=== PATIENT | female | born 1995 | race Two or more races ===

== ENCOUNTER 2021-01-05 12:45 | Observation (INO) | payer MEDICAID ==
[2021-01-05] MEDS ORDERED: PREN-96 PO (14:07)
== END 2021-01-05 15:05 | disposition home or self-care (01) ==
LOC: LDRP 12:45
PROVIDERS: ADMIT Obstetrics & Gynecology; ATTEND Obstetrics & Gynecology
DX: O60.03 Preterm labor without delivery, third trimester (principal); Z3A.33 33 weeks gestation of pregnancy
CPT/HCPCS: 59025; 76817; 76818; 81002; G0378

== ENCOUNTER 2021-01-12 10:11 | Observation (INO) | payer MEDICAID ==
[~2021-01-12] VITALS: Ht 142.2 cm; Wt 54.4 kg
[~2021-01-12 10:11] MED LIST: PREN-96 PO
[2021-01-12] MEDS ORDERED: NIFEdipine 10 MG CAP PO SCH (12:00)
== END 2021-01-12 11:45 | disposition home or self-care (01) ==
LOC: LDRP 10:11
PROVIDERS: ADMIT Obstetrics & Gynecology; ATTEND Obstetrics & Gynecology
DX: O60.03 Preterm labor without delivery, third trimester (principal); O62.9 Abnormality of forces of labor, unspecified; O26.893 Other specified pregnancy related conditions, third trimester; R51.9 Headache, unspecified; Z3A.34 34 weeks gestation of pregnancy
CPT/HCPCS: 59025; 76818; 81002; G0378

== ENCOUNTER 2021-01-19 08:37 | Observation (INO) | payer MEDICAID | END 2021-01-19 11:50 | disposition home or self-care (01) | LOC: LDRP 11:00 | PROVIDERS: ADMIT Specialist; ATTEND Specialist | DX: O60.03 Preterm labor without delivery, third trimester (principal); Z3A.35 35 weeks gestation of pregnancy | CPT/HCPCS: 59025; 81002; G0378 ==

== ENCOUNTER 2021-02-03 15:35 | Observation (INO) | payer MEDICAID | END 2021-02-03 17:54 | disposition home or self-care (01) | LOC: LDRP 15:35 | PROVIDERS: ADMIT Specialist; ATTEND Specialist | DX: O36.5930 Maternal care for other known or suspected poor fetal growth, third trimester, not applicable or unspecified (principal); Z3A.37 37 weeks gestation of pregnancy | CPT/HCPCS: 59025; 76818; 81002; G0378 ==

== ENCOUNTER 2021-02-07 13:56 | Observation (INO) | payer MEDICAID ==
[~2021-02-07] VITALS: Ht 139.7 cm; Wt 55.3 kg
== END 2021-02-07 15:00 | disposition home or self-care (01) ==
LOC: LDRP 13:56
PROVIDERS: ADMIT Obstetrics & Gynecology; ATTEND Obstetrics & Gynecology
DX: O36.5930 Maternal care for other known or suspected poor fetal growth, third trimester, not applicable or unspecified (principal); O62.9 Abnormality of forces of labor, unspecified; Z3A.38 38 weeks gestation of pregnancy
CPT/HCPCS: 59025; 76818; 81002; G0378

== ENCOUNTER 2021-02-10 07:00 | Inpatient (IN) | payer MEDICAID ==
[~2021-02-10] VITALS: Ht 142.2 cm; Wt 56.7 kg
[2021-02-10] MEDS ORDERED: WITCH HAZEL-GLYCERIN PAD TOP PRN (08:15)
[2021-02-10] MEDS ORDERED: PHISODERM TOP SOLN 240ML BTL TOP PRN (08:15)
[2021-02-10] MEDS ORDERED: DERMOPLAST 60ML BOTTLE TOP PRN (08:15)
[2021-02-10] MEDS ORDERED: LIDOCAINE 2%HCL (LOCAL ANESTH.) INJ 20ML MDV IJ PRN (08:15)
[2021-02-10] MEDS ORDERED: PROMETHAZINE HCL 25 MG/ML 1ML IV PRN (08:15)
[2021-02-10] MEDS ORDERED: BUTORPHANOL TARTRATE 2 MG/1 ML VIAL IV PRN (08:15)
[2021-02-10 08:33] LABS: Basophils # (auto) 0 10 ^3/uL (0-0.2); Basophils % (auto) 0.1 % (0.0-2.0); Eosinophils # (auto) 0.1 10 ^3/uL (0-0.8); Eosinophils % (auto) 1.1 % (0.0-7.0); Hematocrit 30.8 % (36.0-46.0); Hemoglobin 10.5 g/dL (12.2-16.2); Lymphocytes # (auto) 1.9 10 ^3/uL (0.4-5.4); Lymphocytes % (auto) 22.9 % (10.0-50.0); Mean Corpuscular Hemoglobin 28.9 pg (28.0-32.0); Mean Corpuscular Volume 84.9 fL (80.0-100.0); Monocytes # (auto) 0.8 10 ^3/uL (0-1.3); Neutrophils # (auto) 5.7 10 ^3/uL (1.6-8.6); Neutrophils % (auto) 66.9 % (37.0-80.0); Red Blood Cells 3.62 10^6/uL (4.0-5.20); Red Cell Distribution Width 14.5 % (11.8-14.3); White Blood Cell 8.5 10^3/uL (4.4-10.8)
[2021-02-10 08:49] LABS: INR 0.99 (0.9-1.15); Partial Thromboplastin Time 25.1 sec (23.6-33.0)
[2021-02-10 09:03] LABS: Albumin 2.7 g/dL (3.4-5.0); Calcium 8.4 mg/dL (8.5-10.1); Potassium 3.3 mmol/L (3.5-5.1)
[2021-02-10 09:09] LABS: BUN/Creatinine Ratio 16.7; Bilirubin, Total 0.2 mg/dL (0.2-1.0); Total Protein 6.7 g/dL (6.4-8.2); Uric Acid 2.4 mg/dL (2.6-6.0)
[2021-02-10 09:22] LABS: Urine Bacteria NONE SEEN /hpf (None Seen); Urine Blood Negative /uL (Negative); Urine Mucus FEW (None Seen); Urine Specific Gravity 1.025 (1.001-1.035); Urine WBC 5 /hpf (0 - 5)
[2021-02-10 09:38] LABS: Alcohol, Urine < 3.0 mg/dL (0-10); Amphetamine Screen, Urine NEGATIVE (NEGATIVE); Barbiturate Scree,Urine NEGATIVE (NEGATIVE); Benzodiazephine Screen, Urine NEGATIVE (NEGATIVE); Cannabinoid Screen, Urine NEGATIVE (NEGATIVE); Cocaine Screen, Urine NEGATIVE (NEGATIVE); Opiate Scree,Urine NEGATIVE (NEGATIVE); Phencyclidine Screen, Urine NEGATIVE (NEGATIVE)
[2021-02-10] MEDS ORDERED: POTASSIUM CHL 20 Meq TABLET PO ONE (11:45)
[2021-02-10] MEDS: LACTATED RINGER'S 1,000 ML IV SCH ×2 (11:51→16:45)
[2021-02-10] MEDS: miSOPROStol 50 MCG per PRE-CUT 1/2 TAB PO PRN ×3 (11:52→20:44)
[2021-02-11] MEDS ORDERED: PROMETHAZINE HCL 25 MG/ML 1ML IM ONE (01:00)
[2021-02-11] MEDS: BUTORPHANOL TARTRATE 2 MG/1 ML VIAL IV PRN ×2 (01:12→04:24)
[2021-02-11] MEDS ORDERED: LACT. RINGERS/OXYTOCIN 20UNITS 1,000 ML IV SCH (01:15)
[2021-02-11] MEDS ORDERED: LACT. RINGERS/OXYTOCIN 20UNITS 500 ML IV ONE ×2 (01:15→01:45)
[2021-02-11] MEDS: LACTATED RINGER'S 1,000 ML IV SCH ×3 (04:32→15:34)
[2021-02-11] MEDS ORDERED: ePHEDrine SULFATE 50 MG/ML AMP IV ONE (06:00)
[2021-02-11] MEDS ORDERED: fentaNYL CITRATE 100 MCG/2 ML VL IV ONE (06:00)
[2021-02-11] MEDS ORDERED: LIDOCAINE HCL 2 %PF INJ 10ML AMP IJ ONE (06:00)
[2021-02-11] MEDS ORDERED: LACTATED RINGER'S 1,000 ML IV ONE (06:00)
[2021-02-11] MEDS ORDERED: NALOXONE HCL 0.4 MG/ML VIAL IV ONE (06:00)
[2021-02-11] MEDS ORDERED: ROPIVACAINE HCL 200 ML EPI SCH (06:00)
[2021-02-11 07:06] LABS: RPR Non Reactive (Non Reactive)
[2021-02-11] MEDS ORDERED: METHYLERGONOVINE MALEATE 0.2 MG/ML AMP IM ONE ×2 (13:53→16:45)
[2021-02-11] MEDS ORDERED: miSOPROStol 100 mcg TAB ONE (13:54)
[2021-02-11] MEDS ORDERED: ceFAZolin 1GM/50ML 50 ML IV ONE (15:21)
[2021-02-11] MEDS: IBUPROFEN 600 MG TAB PO PRN ×2 (17:37→21:33)
[2021-02-11 19:10] VITALS: BP 118/68
[2021-02-11] MEDS ORDERED: ceFAZolin 1GM/50ML 50 ML IV SCH ×2 (22:00→23:30)
[2021-02-11 23:35] VITALS: BP 101/63
[2021-02-11] MEDS: ceFAZolin 1GM/50ML 50 ML IV SCH (23:43)
[2021-02-12 03:36] VITALS: BP 114/54
[2021-02-12 07:00] VITALS: BP 114/74
[2021-02-12] MEDS: ACETAMINOPHEN 325 MG TAB PO PRN ×2 (07:20→18:20)
[2021-02-12] MEDS: ceFAZolin 1GM/50ML 50 ML IV SCH ×2 (10:14→18:21)
[2021-02-12] MEDS: IBUPROFEN 600 MG TAB PO PRN (10:14)
[2021-02-12] MEDS: DOCUSATE CALCIUM 240 MG CAP PO SCH (10:16)
[2021-02-12 11:00] VITALS: BP 109/59
[2021-02-12 15:00] VITALS: BP 94/57
[2021-02-12 19:00] VITALS: BP 80/51
[2021-02-12 22:55] VITALS: BP 98/58
[2021-02-13] MEDS: ceFAZolin 1GM/50ML 50 ML IV SCH ×2 (02:30→10:30)
[2021-02-13] MEDS: IBUPROFEN 600 MG TAB PO PRN ×2 (02:30→03:11)
[2021-02-13 02:31] VITALS: BP 103/63
[2021-02-13] MEDS: ACETAMINOPHEN 325 MG TAB PO PRN (03:28)
[2021-02-13 07:00] VITALS: BP 117/77
[2021-02-13] MEDS: DOCUSATE CALCIUM 240 MG CAP PO SCH (10:00)
[2021-02-13 11:28] VITALS: BP 110/72
== END 2021-02-13 11:45 | disposition home or self-care (01) | DRG 560 ==
LOC: LDRP 07:00 → EDSTATUS 07:26 → LDRP 11:02
PROVIDERS: ADMIT Obstetrics & Gynecology; ATTEND Obstetrics & Gynecology
PROC: 3E0P7VZ Introduction of Hormone into Female Reproductive, Via Natural or Artificial Opening (ICD-10-PCS; 2021-02-10)
PROC: 10E0XZZ Delivery of Products of Conception, External Approach (ICD-10-PCS; principal; 2021-02-11)
PROC: 0W8NXZZ Division of Female Perineum, External Approach (ICD-10-PCS; 2021-02-11)
PROC: 0KQM0ZZ Repair Perineum Muscle, Open Approach (ICD-10-PCS; 2021-02-11)
PROC: 3E0R3BZ Introduction of Anesthetic Agent into Spinal Canal, Percutaneous Approach (ICD-10-PCS; 2021-02-11)
PROC: 00HU33Z Insertion of Infusion Device into Spinal Canal, Percutaneous Approach (ICD-10-PCS; 2021-02-11)
PROC: 10907ZC Drainage of Amniotic Fluid, Therapeutic from Products of Conception, Via Natural or Artificial Opening (ICD-10-PCS; 2021-02-11)
DX: O36.5930 Maternal care for other known or suspected poor fetal growth, third trimester, not applicable or unspecified (principal); O70.1 Second degree perineal laceration during delivery; Z37.0 Single live birth; Z3A.39 39 weeks gestation of pregnancy; Z20.822 Contact with and (suspected) exposure to COVID-19
CPT/HCPCS: 36415; 59025; 59409; 62282; 80053; 80307; 81001; 81002; 84550; 85025; 85610; 85730; 86592; 86850; 86900; 86901; 87426; 94760; 96360; 96361; G0378; J0690; J2590

== ENCOUNTER 2024-02-01 19:16 | Inpatient (IN) | payer MEDICAID ==
[~2024-02-01] VITALS: Ht 142.2 cm; Wt 53.3 kg
[2024-02-01 20:06] LABS: Urine Bacteria None Seen /hpf (None Seen)
[2024-02-01 20:07] LABS: Basophils # (auto) 0 10 ^3/uL (0-0.2); Basophils % (auto) 0.3 % (0.0-2.0); Eosinophils # (auto) 0.1 10 ^3/uL (0-0.8); Eosinophils % (auto) 1.2 % (0.0-7.0); Hematocrit 32.1 % (36.0-46.0); Hemoglobin 10.9 g/dL (12.2-16.2); Lymphocytes # (auto) 1.3 10 ^3/uL (0.4-5.4); Lymphocytes % (auto) 13.7 % (10.0-50.0); Mean Corpuscular Hemoglobin 28.5 pg (28.0-32.0); Mean Corpuscular Hgb Conc. 33.8 g/dL (32.0-36.0); Mean Corpuscular Volume 84.1 fL (80.0-100.0); Monocytes # (auto) 0.8 10 ^3/uL (0-1.3); Monocytes % (auto) 8.5 % (0.0-12.0); Neutrophils # (auto) 7.2 10 ^3/uL (1.6-8.6); Neutrophils % (auto) 76.3 % (37.0-80.0); Red Blood Cells 3.82 10^6/uL (4.0-5.20); Red Cell Distribution Width 13.1 % (11.8-14.3); White Blood Cell 9.5 10^3/uL (4.4-10.8)
[2024-02-01 20:20] LABS: Urine Blood Negative /uL (Negative); Urine Clarity Clear (Clear); Urine Color Yellow (Yellow); Urine Mucus FEW (None Seen); Urine Protein, UAD TRACE (Negative); Urine Specific Gravity 1.028 (1.001-1.035); Urine Urobilinogen Normal (Negative); Urine WBC 9 /hpf (0 - 5); Urine pH 5.5 (5.0-9.0)
[2024-02-01 20:26] LABS: Alanine Aminotransferase 24 U/L (7-40); Alkaline Phosphatase 64 U/L (46-116); Anion Gap 7 (5-15); Aspartate Aminotransferase 11 U/L (13-40); Bilirubin, Total 0.2 mg/dL (0.2-1.0); Calcium 8.8 mg/dL (8.7-10.4); Carbon Dioxide 27 mmol/L (20-30); Chloride 104 mmol/L (98-107); Glucose 110 mg/dL (74-106); Magnesium 1.7 mg/dL (1.6-2.6); Sodium 138 mmol/L (136-145); Total Protein 7.2 g/dL (5.7-8.2)
[2024-02-01 20:27] LABS: BUN/Creatinine Ratio 9.1 (10.0-20.0); Blood Urea Nitrogen < 5 mg/dL (9-23)
[2024-02-01] MEDS ORDERED: ACETAMINOPHEN 325 MG TAB PO PRN ×2 (21:45)
[2024-02-01 22:15] VITALS: PULSE 86; RESP 18; O2SAT 100
[2024-02-01] MEDS: SODIUM CHLORIDE 0.9% 1,000 ML IV ONE (22:36)
[2024-02-01] MEDS: LIDOCAINE VISCOUS 2% 15ML UD MT ONE (22:37)
[2024-02-01] MEDS: MAALOX PLUS or MAALOX 30 ML PO ONE (22:37)
[2024-02-01] MEDS: PANTOPRAZOLE 40 MG TAB PO ONE (22:38)
[2024-02-01] MEDS: ONDANSETRON HCL 4 MG/2 ML VIAL IV ONE (22:38)
[2024-02-01] MEDS: cefTRIAXone 1GM/50ML D5W 50 ML IV ONE (22:59)
[2024-02-01] MEDS: MORPHINE SULFATE INJ 2 MG/ml SYRG IV PRN (22:59)
[2024-02-01] MEDS: metroNIDAZOLE 500MG/100ML 100 ML IV SCH (23:08)
[2024-02-02] VITALS (8 sets, daily range): BP systolic 96–101; BP diastolic 63–71; PULSE 72–89; RESP 16–20; TEMP 98.2–98.8; O2SAT 94–97
[2024-02-02] MEDS: METOCLOPRAMIDE HCL 5MG/ml INJ 2ml VIAL IV ONE (00:32)
[2024-02-02] MEDS: SOD CHL 0.9%/ KCL 40MEQ 1,000 ML IV ONE (01:05)
[2024-02-02] MEDS: PANTOPRAZOLE 40 MG TAB PO SCH (05:31)
[2024-02-02] MEDS: HYDROcodone-ACET 5/325MG TAB PO PRN (05:39)
[2024-02-02 07:05] LABS: Chloride 109 mmol/L (98-107); Potassium 2.9 mmol/L (3.5-5.1); Sodium 140 mmol/L (136-145)
[2024-02-02 07:11] LABS: Glucose 96 mg/dL (74-106)
[2024-02-02 07:13] LABS: Basophils # (auto) 0 10 ^3/uL (0-0.2); Basophils % (auto) 0.2 % (0.0-2.0); Eosinophils # (auto) 0.1 10 ^3/uL (0-0.8); Eosinophils % (auto) 1.6 % (0.0-7.0); Hematocrit 27.6 % (36.0-46.0); Hemoglobin 9.6 g/dL (12.2-16.2); Lymphocytes # (auto) 1.7 10 ^3/uL (0.4-5.4); Lymphocytes % (auto) 18.6 % (10.0-50.0); Mean Corpuscular Hemoglobin 29.1 pg (28.0-32.0); Mean Corpuscular Hgb Conc. 34.7 g/dL (32.0-36.0); Mean Corpuscular Volume 83.8 fL (80.0-100.0); Monocytes # (auto) 0.9 10 ^3/uL (0-1.3); Monocytes % (auto) 10.3 % (0.0-12.0); Neutrophils # (auto) 6.2 10 ^3/uL (1.6-8.6); Neutrophils % (auto) 69.3 % (37.0-80.0); Red Blood Cells 3.29 10^6/uL (4.0-5.20); White Blood Cell 8.9 10^3/uL (4.4-10.8)
[2024-02-02 07:17] LABS: BUN/Creatinine Ratio 12.2 (10.0-20.0); Blood Urea Nitrogen < 5 mg/dL (9-23)
[2024-02-02 07:23] LABS: Anion Gap 8 (5-15); Carbon Dioxide 23 mmol/L (20-30)
[2024-02-02] MEDS: cefTRIAXone 1GM/50ML D5W 50 ML IV SCH (08:25)
[2024-02-02] MEDS: POTASSIUM CHL 20 Meq TABLET PO ONE ×2 (11:54→12:07)
[2024-02-02] MEDS: MAGNESIUM OXIDE 400 MG TAB PO ONE (11:54)
[2024-02-02] MEDS: DICYCLOMINE HCL 10 MG CAP PO PRN (16:17)
[2024-02-02] MEDS ORDERED: DICYCLOMINE HCL 10 MG CAP PO ONE (22:00)
[2024-02-03 01:00] VITALS: BP 120/54; PULSE 93; RESP 20; TEMP 98.9; O2SAT 99
[2024-02-03] MEDS: ONDANSETRON HCL 4 MG/2 ML VIAL IV PRN (01:45)
[2024-02-03 05:00] VITALS: BP 95/61; PULSE 85; RESP 20; TEMP 98.8; O2SAT 94
[2024-02-03 08:22] VITALS: BP 128/76; PULSE 82; RESP 20; TEMP 98.7; O2SAT 97
[2024-02-03 12:27] VITALS: BP 98/51; PULSE 80; RESP 18; TEMP 98.7; O2SAT 98
[2024-02-03 17:00] VITALS: BP 111/72; PULSE 63; RESP 16; TEMP 98.4; O2SAT 98
[2024-02-03 21:00] VITALS: BP 103/68; PULSE 80; RESP 18; TEMP 99; O2SAT 97
[2024-02-04] VITALS (9 sets, daily range): BP systolic 101–109; BP diastolic 60–77; PULSE 77–92; RESP 16–22; TEMP 98–99.1; O2SAT 92–97
[2024-02-04] MEDS: METOCLOPRAMIDE HCL 5MG/ml INJ 2ml VIAL IV ONE (03:51)
[2024-02-04 07:14] LABS: Basophils # (auto) 0 10 ^3/uL (0-0.2); Basophils % (auto) 0.4 % (0.0-2.0); Eosinophils # (auto) 0.2 10 ^3/uL (0-0.8); Eosinophils % (auto) 1.5 % (0.0-7.0); Hematocrit 30.7 % (36.0-46.0); Hemoglobin 10.4 g/dL (12.2-16.2); Lymphocytes # (auto) 1.4 10 ^3/uL (0.4-5.4); Lymphocytes % (auto) 13.7 % (10.0-50.0); Mean Corpuscular Hemoglobin 28.4 pg (28.0-32.0); Mean Corpuscular Hgb Conc. 33.8 g/dL (32.0-36.0); Monocytes # (auto) 0.8 10 ^3/uL (0-1.3); Monocytes % (auto) 8.3 % (0.0-12.0); Neutrophils # (auto) 7.6 10 ^3/uL (1.6-8.6); Neutrophils % (auto) 76.1 % (37.0-80.0); Nucleated Red Blood Cells % 0.1 %; Red Blood Cells 3.66 10^6/uL (4.0-5.20); Red Cell Distribution Width 13.2 % (11.8-14.3)
[2024-02-04 07:27] LABS: Anion Gap 13 (5-15); Carbon Dioxide 19 mmol/L (20-30); Chloride 109 mmol/L (98-107); Potassium 3.3 mmol/L (3.5-5.1); Sodium 141 mmol/L (136-145)
[2024-02-04 07:29] LABS: Calcium 8.6 mg/dL (8.7-10.4)
[2024-02-04 07:32] LABS: Glucose 73 mg/dL (74-106)
[2024-02-04 07:34] LABS: BUN/Creatinine Ratio 11.4 (10.0-20.0); Blood Urea Nitrogen < 5 mg/dL (9-23); INR 1.19 (0.9-1.15); Partial Thromboplastin Time 28.2 SEC (24.5-34.5); Prothrombin Time 12.5 sec (9.3-11.8)
[2024-02-04] MEDS ORDERED: fentaNYL CITRATE 100 MCG/2 ML VL ONE (09:55)
[2024-02-04] MEDS ORDERED: PROPOFOL 10 MG/ML 20 ML IV ONE (09:56)
[2024-02-04] MEDS ORDERED: HYDROmorphone HCL 2 MG/ML VL/or syr IV PRN (10:30)
[2024-02-04] MEDS ORDERED: MEPERIDINE HCL (25 MG/ML) 1ML VIAL IV PRN (10:30)
[2024-02-04] MEDS: ONDANSETRON HCL 4 MG/2 ML VIAL IV ONE (11:42)
[2024-02-04] MEDS: MESALAMINE 400mg Delayed Release Cap PO SCH (12:51)
[2024-02-04] MEDS: methylPREDNISolone SOD SUCC 40 MG/ML VL IV SCH (12:51)
[2024-02-04] MEDS: METOCLOPRAMIDE HCL 10 MG TAB PO SCH (12:51)
[2024-02-04] MEDS: POTASSIUM CHLORIDE 40 MEQ in SOD CHL 0.45% 1,000 ML IV SCH (15:57)
[2024-02-04] MEDS: METOCLOPRAMIDE HCL 5MG/ml INJ 2ml VIAL IV PRN (21:22)
[2024-02-04] MEDS: LOPERAMIDE 1 mg/7.5ml ORAL soln PO PRN (21:23)
[2024-02-05] VITALS (7 sets, daily range): BP systolic 93–104; BP diastolic 57–73; PULSE 71–107; RESP 16–19; TEMP 97.5–98.3; O2SAT 94–98
[2024-02-05] MEDS: CHOLESTYRAMINE 4 GM POWDER GT SCH (11:23)
[2024-02-05] MEDS ORDERED: MESA400C PO (13:07)
[2024-02-05] MEDS ORDERED: PRED20TA2 PO (13:07)
[2024-02-05] MEDS: methylPREDNISolone SOD SUCC 40 MG/ML VL IV SCH (21:22)
[2024-02-06 01:00] VITALS: BP 105/72; PULSE 99; RESP 17; TEMP 98.3; O2SAT 98
[2024-02-06 05:00] VITALS: BP 98/64; PULSE 55; RESP 17; TEMP 98; O2SAT 100
[2024-02-06 05:32] LABS: Hematocrit 37.6 % (36.0-46.0); Hemoglobin 12.7 g/dL (12.2-16.2)
[2024-02-06 05:44] LABS: Chloride 106 mmol/L (98-107); Potassium 4.2 mmol/L (3.5-5.1); Sodium 141 mmol/L (136-145)
[2024-02-06 05:45] LABS: Anion Gap 9 (5-15); Carbon Dioxide 26 mmol/L (20-30)
[2024-02-06 05:46] LABS: Calcium 9.4 mg/dL (8.7-10.4)
[2024-02-06 05:50] LABS: BUN/Creatinine Ratio 15.5 (10.0-20.0); Blood Urea Nitrogen 9 mg/dL (9-23); Glucose 178 mg/dL (74-106)
== END 2024-02-06 11:00 | disposition home or self-care (01) | DRG 245 ==
LOC: ER 19:16 → OVERFLOW 21:37 → TELE-EAST 02-02 02:41 → EAST 02-02 10:08
PROVIDERS: ADMIT Internal Medicine; ATTEND Nurse Practitioner Acute Care
PROC: 0DBL8ZX Excision of Transverse Colon, Via Natural or Artificial Opening Endoscopic, Diagnostic (ICD-10-PCS; 2024-02-04)
PROC: 0DBN8ZX Excision of Sigmoid Colon, Via Natural or Artificial Opening Endoscopic, Diagnostic (ICD-10-PCS; 2024-02-04)
PROC: 0DBM8ZX Excision of Descending Colon, Via Natural or Artificial Opening Endoscopic, Diagnostic (ICD-10-PCS; 2024-02-04)
PROC: 0DBK8ZX Excision of Ascending Colon, Via Natural or Artificial Opening Endoscopic, Diagnostic (ICD-10-PCS; principal; 2024-02-04 09:59)
DX: K51.00 Ulcerative (chronic) pancolitis without complications (principal); A04.5 Campylobacter enteritis; E87.8 Other disorders of electrolyte and fluid balance, not elsewhere classified; E87.6 Hypokalemia; F17.210 Nicotine dependence, cigarettes, uncomplicated; K64.8 Other hemorrhoids; Z80.3 Family history of malignant neoplasm of breast; Z79.899 Other long term (current) drug therapy
CPT/HCPCS: 36415; 74176; 80048; 80053; 81001; 82270; 83735; 84702; 85014; 85018; 85025; 85048; 85610; 85730; 86141; 86256; 86671; 86850; 86900; 86901; 87045; 87086; 87088; 87427; 96361; 96365; 96375; G0378; J2405; J2704; J3490

== ENCOUNTER → 2024-03-05 | Outpatient (CLI) | payer MEDICAID ==
[~2024-03-05] MED LIST changes: +MESA400C PO; +PRED20TA2 PO; -PREN-96 PO
[2024-03-05 12:21] LABS: Urine Bacteria None Seen /hpf (None Seen)
[2024-03-05 12:56] LABS: Basophils # (auto) 0 10 ^3/uL (0-0.2); Basophils % (auto) 0.5 % (0.0-2.0); Eosinophils # (auto) 0.1 10 ^3/uL (0-0.8); Eosinophils % (auto) 1.4 % (0.0-7.0); Hematocrit 34.8 % (36.0-46.0); Hemoglobin 11.5 g/dL (12.2-16.2); Mean Corpuscular Hemoglobin 27.6 pg (28.0-32.0); Mean Corpuscular Hgb Conc. 33.1 g/dL (32.0-36.0); Mean Corpuscular Volume 83.4 fL (80.0-100.0); Monocytes # (auto) 0.7 10 ^3/uL (0-1.3); Monocytes % (auto) 6.6 % (0.0-12.0); Neutrophils # (auto) 6.1 10 ^3/uL (1.6-8.6); Neutrophils % (auto) 61.5 % (37.0-80.0); Platelet Count (auto) 317 10^3/uL (140-450); Red Blood Cells 4.17 10^6/uL (4.0-5.20); Red Cell Distribution Width 13.6 % (11.8-14.3); White Blood Cell 9.9 10^3/uL (4.4-10.8)
[2024-03-05 13:09] LABS: Urine Blood Negative /uL (Negative); Urine Budding Yeast OCCASIONAL /hpf (None Seen); Urine Clarity Turbid (Clear); Urine Color Yellow (Yellow); Urine Hyaline Cast FEW /lpf (0 - 2); Urine Mucus FEW (None Seen); Urine Protein, UAD TRACE (Negative); Urine Specific Gravity 1.033 (1.001-1.035); Urine Urobilinogen Normal (Negative); Urine WBC 17 /hpf (0 - 5); Urine pH 5.5 (5.0-9.0)
[2024-03-05 13:33] LABS: Alanine Aminotransferase 50 U/L (7-40); Albumin 4.5 g/dL (3.2-4.8); Alkaline Phosphatase 54 U/L (46-116); Anion Gap 5 (5-15); Aspartate Aminotransferase < 8 U/L (13-40); BUN/Creatinine Ratio 23.2 (10.0-20.0); Bilirubin, Total 0.3 mg/dL (0.2-1.0); Blood Urea Nitrogen 13 mg/dL (9-23); Calcium 9.6 mg/dL (8.7-10.4); Carbon Dioxide 27 mmol/L (20-30); Chloride 107 mmol/L (98-107); Cholesterol 119 mg/dL (< 200); Glucose 81 mg/dL (74-106); HDL Cholesterol 43 mg/dL (40-59); LDL Cholesterol 63 mg/dL (< 100); Potassium 3.5 mmol/L (3.5-5.1); Sodium 139 mmol/L (136-145); Total Protein 7.7 g/dL (5.7-8.2); Triglycerides 70 mg/dL (< 150)
[2024-03-06 08:47] LABS: Hepatitis B Surface Antigen Negative (Negative)
[2024-03-06 09:08] LABS: Hepatitis C Antibody Negative (Negative)
[2024-03-07 12:07] LABS: Saccharomyces cerevisiae IgA <20.0 Units (0.0-24.9)
== END | disposition home or self-care (01) ==
LOC: LAB 11:42
PROVIDERS: ATTEND Internal Medicine
DX: Z00.01 Encounter for general adult medical examination with abnormal findings (principal); M79.89 Other specified soft tissue disorders; E87.6 Hypokalemia; D50.0 Iron deficiency anemia secondary to blood loss (chronic); K51.90 Ulcerative colitis, unspecified, without complications; R19.7 Diarrhea, unspecified; Z82.49 Family history of ischemic heart disease and other diseases of the circulatory system; Z83.3 Family history of diabetes mellitus
CPT/HCPCS: 36415; 80053; 80061; 81001; 82306; 83036; 83880; 84439; 84443; 85025; 86256; 86671; 86803; 87340

== ENCOUNTER → 2024-05-22 | Outpatient (CLI) | payer MEDICAID ==
[2024-05-22 12:01] LABS: Basophils # (auto) 0 10 ^3/uL (0-0.2); Basophils % (auto) 0.6 % (0.0-2.0); Hemoglobin 12.2 g/dL (12.2-16.2); Monocytes # (auto) 0.4 10 ^3/uL (0-1.3); Nucleated Red Blood Cells % 0.1 %
[2024-05-22 12:03] LABS: Eosinophils # (auto) 0.1 10 ^3/uL (0-0.8); Eosinophils % (auto) 2.3 % (0.0-7.0); Hematocrit 37.2 % (36.0-46.0); Lymphocytes # (auto) 1.7 10 ^3/uL (0.4-5.4); Lymphocytes % (auto) 29.3 % (10.0-50.0); Mean Corpuscular Hgb Conc. 32.8 g/dL (32.0-36.0); Monocytes % (auto) 7.6 % (0.0-12.0); Neutrophils # (auto) 3.6 10 ^3/uL (1.6-8.6); Neutrophils % (auto) 60.2 % (37.0-80.0); Platelet Count (auto) 273 10^3/uL (140-450); Red Blood Cells 4.71 10^6/uL (4.0-5.20); Red Cell Distribution Width 15.3 % (11.8-14.3)
[2024-05-22 12:50] LABS: Alanine Aminotransferase 18 U/L (7-40); Albumin 4.6 g/dL (3.2-4.8); Alkaline Phosphatase 47 U/L (46-116); Anion Gap 8 (5-15); Aspartate Aminotransferase < 8 U/L (13-40); Bilirubin, Total 0.4 mg/dL (0.2-1.0); Blood Urea Nitrogen 8 mg/dL (9-23); Calcium 9.8 mg/dL (8.7-10.4); Carbon Dioxide 27 mmol/L (20-31); Chloride 107 mmol/L (98-107); Glucose 86 mg/dL (74-106); Potassium 3.8 mmol/L (3.5-5.1); Sodium 142 mmol/L (136-145); Total Protein 7.7 g/dL (5.7-8.2)
[2024-05-22 12:52] LABS: Ferritin 5.5 ng/mL (10-291); Free T4 (Free Thyroxine) 1.02 ng/dL (0.89-1.76)
[2024-05-22 12:53] LABS: Free T3 3.94 pg/mL (2.3-4.2)
== END | disposition home or self-care (01) ==
LOC: LAB 11:32
PROVIDERS: ATTEND Internal Medicine
DX: R01.2 Other cardiac sounds (principal); R60.9 Edema, unspecified; D50.0 Iron deficiency anemia secondary to blood loss (chronic); E87.6 Hypokalemia
CPT/HCPCS: 36415; 80053; 82728; 84439; 84443; 84481; 85025; 86038

== ENCOUNTER → 2024-08-05 | Outpatient (CLI) | payer MEDICAID ==
[2024-08-05 11:22] LABS: Basophils # (auto) 0 10 ^3/uL (0-0.2); Eosinophils # (auto) 0.2 10 ^3/uL (0-0.8); Hemoglobin 12.7 g/dL (12.2-16.2); Lymphocytes # (auto) 1.8 10 ^3/uL (0.4-5.4); Mean Corpuscular Hemoglobin 26.8 pg (28.0-32.0); Monocytes # (auto) 0.4 10 ^3/uL (0-1.3); Nucleated Red Blood Cells % 0.1 %; Red Cell Distribution Width 14.9 % (11.8-14.3)
[2024-08-05 11:23] LABS: Basophils % (auto) 0.6 % (0.0-2.0); Eosinophils % (auto) 2.8 % (0.0-7.0); Hematocrit 38.3 % (36.0-46.0); Lymphocytes % (auto) 28.4 % (10.0-50.0); Mean Corpuscular Volume 81.4 fL (80.0-100.0); Monocytes % (auto) 6.1 % (0.0-12.0); Neutrophils % (auto) 62.1 % (37.0-80.0); Platelet Count (auto) 258 10^3/uL (140-450); Red Blood Cells 4.71 10^6/uL (4.0-5.20); White Blood Cell 6.5 10^3/uL (4.4-10.8)
[2024-08-05 12:00] LABS: Chloride 106 mmol/L (98-107); Potassium 3.9 mmol/L (3.5-5.1); Sodium 140 mmol/L (136-145)
[2024-08-05 12:01] LABS: Anion Gap 7 (5-15); Calcium 10.3 mg/dL (8.7-10.4); Carbon Dioxide 27 mmol/L (20-31)
[2024-08-05 12:06] LABS: Glucose 89 mg/dL (74-106); Lipase 42 U/L (12-53)
[2024-08-05 12:20] LABS: Blood Urea Nitrogen 8 mg/dL (9-23)
== END | disposition home or self-care (01) ==
LOC: LAB 11:04
PROVIDERS: ATTEND Internal Medicine Gastroenterology
DX: K50.90 Crohn's disease, unspecified, without complications (principal)
CPT/HCPCS: 36415; 80048; 83690; 85025

== ENCOUNTER → 2024-09-04 | Outpatient (CLI) | payer MEDICAID ==
[2024-09-04 12:44] LABS: Basophils # (auto) 0 10 ^3/uL (0-0.2); Basophils % (auto) 0.7 % (0.0-2.0); Eosinophils # (auto) 0.2 10 ^3/uL (0-0.8); Eosinophils % (auto) 3.8 % (0.0-7.0); Hematocrit 37.1 % (36.0-46.0); Hemoglobin 12.5 g/dL (12.2-16.2); Lymphocytes # (auto) 1.8 10 ^3/uL (0.4-5.4); Lymphocytes % (auto) 29.5 % (10.0-50.0); Mean Corpuscular Hemoglobin 27.5 pg (28.0-32.0); Mean Corpuscular Hgb Conc. 33.6 g/dL (32.0-36.0); Mean Corpuscular Volume 81.7 fL (80.0-100.0); Monocytes # (auto) 0.4 10 ^3/uL (0-1.3); Monocytes % (auto) 5.9 % (0.0-12.0); Neutrophils # (auto) 3.7 10 ^3/uL (1.6-8.6); Neutrophils % (auto) 60.1 % (37.0-80.0); Platelet Count (auto) 271 10^3/uL (140-450); Red Blood Cells 4.54 10^6/uL (4.0-5.20); Red Cell Distribution Width 14.5 % (11.8-14.3); White Blood Cell 6.2 10^3/uL (4.4-10.8)
[2024-09-04 13:03] LABS: Alanine Aminotransferase 12 U/L (7-40); Alkaline Phosphatase 48 U/L (46-116); Anion Gap 9 (5-15); BUN/Creatinine Ratio 20.4 (10.0-20.0); Blood Urea Nitrogen 11 mg/dL (9-23); Calcium 10.2 mg/dL (8.7-10.4); Carbon Dioxide 26 mmol/L (20-31); Chloride 106 mmol/L (98-107); Glucose 95 mg/dL (74-106); Potassium 4.1 mmol/L (3.5-5.1); Sodium 141 mmol/L (136-145)
[2024-09-04 13:04] LABS: Bilirubin, Total 0.4 mg/dL (0.2-1.0); Total Protein 7.7 g/dL (5.7-8.2)
[2024-09-04 13:06] LABS: Free T3 3.56 pg/mL (2.3-4.2)
[2024-09-04 13:07] LABS: Free T4 (Free Thyroxine) 0.97 ng/dL (0.89-1.76)
[2024-09-04 13:14] LABS: Aspartate Aminotransferase < 8 U/L (13-40)
== END | disposition home or self-care (01) ==
LOC: LAB 12:01
PROVIDERS: ATTEND Internal Medicine
DX: E83.51 Hypocalcemia (principal); E87.6 Hypokalemia; K62.5 Hemorrhage of anus and rectum; D50.0 Iron deficiency anemia secondary to blood loss (chronic); R79.89 Other specified abnormal findings of blood chemistry; Z83.49 Family history of other endocrine, nutritional and metabolic diseases
CPT/HCPCS: 36415; 80053; 84439; 84443; 84481; 85025

== ENCOUNTER 2024-12-12 07:33 | Emergency (ER) | payer MEDICAID ==
[~2024-12-12] VITALS: Ht 142.2 cm; Wt 56.8 kg
[2024-12-12 08:21] LABS: Urine Bacteria None Seen /hpf (None Seen)
[2024-12-12 08:28] LABS: Urine Blood Negative /uL (Negative); Urine Clarity Clear (Clear); Urine Color Yellow (Yellow); Urine Mucus FEW (None Seen); Urine Protein, UAD TRACE (Negative); Urine Specific Gravity 1.025 (1.001-1.035); Urine Squamous Epithelial Cell FEW /hpf (<5); Urine Urobilinogen Normal (Negative); Urine WBC 1 /HPF (0-5); Urine pH 5.5 (5.0-9.0)
[2024-12-12 08:43] LABS: Basophils # (auto) 0 10 ^3/uL (0-0.2); Monocytes # (auto) 0.5 10 ^3/uL (0-1.3)
[2024-12-12 08:44] LABS: Basophils % (auto) 0.3 % (0.0-2.0); Eosinophils # (auto) 0.4 10 ^3/uL (0-0.8); Eosinophils % (auto) 4.8 % (0.0-7.0); Hematocrit 35.2 % (36.0-46.0); Hemoglobin 11.8 g/dL (12.2-16.2); Lymphocytes # (auto) 1.4 10 ^3/uL (0.4-5.4); Lymphocytes % (auto) 17.2 % (10.0-50.0); Mean Corpuscular Hemoglobin 26.8 pg (28.0-32.0); Mean Corpuscular Hgb Conc. 33.5 g/dL (32.0-36.0); Mean Corpuscular Volume 79.9 fL (80.0-100.0); Monocytes % (auto) 6.6 % (0.0-12.0); Neutrophils # (auto) 5.7 10 ^3/uL (1.6-8.6); Neutrophils % (auto) 71.1 % (37.0-80.0); Platelet Count (auto) 285 10^3/uL (140-450); Red Cell Distribution Width 14.1 % (11.8-14.3)
[2024-12-12 09:01] LABS: Alanine Aminotransferase 25 U/L (7-40); Alkaline Phosphatase 65 U/L (46-116); Anion Gap 8 (5-15); BUN/Creatinine Ratio 11.1 (10.0-20.0); Calcium 9.4 mg/dL (8.7-10.4); Carbon Dioxide 26 mmol/L (20-31); Chloride 104 mmol/L (98-107); Lipase 40 U/L (12-53); Potassium 3.8 mmol/L (3.5-5.1); Sodium 138 mmol/L (136-145)
--- NOTE | 2024-12-12 09:01 | ED.PDOC ---
GI ASSESSMENT HPI Comments 29-YEAR-OLD FEMALE WITH PAST MEDICAL HISTORY OF IRRITABLE BOWEL DISEASE AND ULCERATIVE COLITIS PRESENTS TO THE EMERGENCY DEPARTMENT FOR CHIEF COMPLAINT OF ABDOMINAL PAIN. PATIENT REPORTS THAT SHE HAS BEEN EXPERIENCING DIFFUSE ABDOMINAL PAIN WITH ASSOCIATED BLOOD IN STOOL X2 WEEKS. PATIENT ENDORSES ABDOMINAL PAIN TO HAVE WORSENED IN THE LAST 3 DAYS WITH NEW ONSET SYMPTOMS OF NAUSEA AND POOR APPETITE. PATIENT DENIES FEVER CHILLS BODY ACHES NAUSEA OR VOMITING. NO OTHER SYMPTOMS OR MODIFYING FACTORS PRESENT AT THIS TIME. PATIENT SEES DR. HAILE LOCK. SHE HAD A CHANGE IN DOSE OF MEDICATIONS PROXIMALLY A MONTH AND A HALF AGO WHERE SHE WAS INITIALLY TAKING 1.2 G OF MESALAMINE B.I.D. HOWEVER THAT HAS BEEN CHANGED TO 800 T.I.D. P.O.. SHE STATES SHE WAS TOLERATING THE NEW DOSE OKAY BUT NOW WHENEVER SHE TAKES A PILL THE ENTIRE PILL COMES OUT IN UNCHANGED WHOLE PILL FORM IN HER STOOL. SHE HAS BEEN HAVING BLOODY DIARRHEA X2 WEEKS. SHE ALSO STATES THAT 3 DAYS AGO SHE DID CRUSH TO OVER MESALAMINE PILLS TO SEE IF THAT WOULD HELP BUT IT CAUSED HER SIGNIFICANT STOMACH PAIN. SHE ATTEMPTED TO MAKE AN APPOINTMENT WITH DR. GRAY LOCK BUT APPOINTMENT IS NOT AVAILABLE UNTIL MID JANUARY WHICH IS A MONTH AND A HALF AWAY. Chief Complaint: Abdominal Pain Time Seen by MD: 08:12 Reviewed Notes: Nurses Notes, Medications, Allergies Allergies: Coded Allergies: No Known Drug Allergy (Verified Allergy, Unknown, 02/07/21) Home Meds Active Scripts Prednisone (Prednisone) 20 Mg Tab, 40 MG PO DAILY for 28 Days, #42 MG 40 mg p.o. daily x7 days, then 30 mg p.o. daily x7 days, then 20 mg p.o. daily x7 days, then 10 mg p.o. daily x7 days Prov:AGUEDA NGUYEN NP 02/05/24 Mesalamine (DELZICOL) 400 Mg Cap, 800 MG PO TID for 30 Days, #90 CAP 1 Refill Prov:AGUEDA NGUYEN [employer] 02/05/24 Information Source: Patient Mode of Arrival: Ambulatory Timing: Days Duration: Since onset Prehospital treatment: None Quality: None Vomitus: None Severity: Moderate Recent: None Recent Hx of: None Pain Location: Diffuse Modifying Factors: Nothing Associated sign and symptoms: Abdominal Pain Past Medical History PAST MEDICAL HISTORY: Denies Past Medical History (Other): URETERAL BOWEL DISEASE, COLITIS Surgical History: Denies all surgeries HR REPRESENTATIVE History: No Pertinent HR REPRESENTATIVE History Family History Family History: Reviewed,noncontributory to illness, No family hx of Cancer, No family hx of DM, No family hx of Heart judith, No family hx of HTN, No family hx ofKidney judith, No family hx of Liver judith, No family hx of Lung judith, No family hx of Stroke Social History Smoker: Cigarettes, Other Alcohol: Denies ETOH Use Drugs: Denies Drug Use Gastrointestinal: reports: abdominal pain, blood streaked bowels All Other Systems: Reviewed and Negative ( PER HPI) Physical Exam General Appearance: No Apparent Distress, Normal HEENT: Normal ENT Inspection, Pharynx Normal Neck: Full Range of Motion, Non-Tender, Normal, Normal Inspection Respiratory: Chest Non-Tender, Lungs Clear, No Accessory Muscle Use, No Res piratory Distress, Normal Breath Sounds Cardiovascular: No Edema, No Murmur, No Gallop, Normal Peripheral Pulses, Regular Rate/Rhythm Breast Exam: Deferred Gastrointestinal: No Organomegaly, Non Tender, No Pulsatile Mass, Normal Bowel Sounds, Soft Genitalia: Deferred Pelvic: Deferred Rectal: Deferred Extremities: No calf tenderness, Normal capillary refill, Normal inspection, Normal range of motion, Non-tender, No pedal edema Musculoskeletal : Apperance: Normal Neurologic: Alert, third mate II-XII nml as Tested, No Motor Deficits, Normal Affect, Normal Mood, No Sensory Deficits Cerebellar Function: Normal Reflexes: Normal Skin: Dry, Normal Color, Warm Lymphatic: No Adenopathy Was a procedure done? Was a procedure done?: No GI differential Dx Differential Diagnosis: Gastritis/PUD, Gastroenteritis, Inflammatory BD, Ischemic Bowel, Drug toxicity, Electrolyte Imbalance, Food Poisoning, Bacterial, Viral X-Ray, Labs, Meds, VS Vital Signs Date Time Temp Pulse Resp B/P (MAP) Pulse Ox O2 Delivery O2 Flow Rate FiO2 12/12/24 10:53 74 16 116/64 12/12/24 09:33 98 14 122/82 12/12/24 09:19 99 14 98 Room Air 12/12/24 09:19 98 14 99 Room Air* 0 21 12/12/24 09:19 98.8 98 14 122/82 (95) 99 98.8 12/12/24 07:52 97.8 108 16 126/85 (99) 98 97.8 Lab Test 12/12/24 08:28 12/12/24 08:15 Range/Units White Blood Count 8.0 4.4-10.8 10^3/uL Red Blood Count 4.40 4.0-5.20 10^6/uL Hemoglobin 11.8 L 12.2-16.2 g/dL Hematocrit 35.2 L 36.0-46.0 % Mean Corpuscular Volume 79.9 L 80.0-100.0 fL Mean Corpuscular Hemoglobin 26.8 L 28.0-32.0 pg Mean Corpuscular Hemoglobin Concent 33.5 32.0-36.0 g/dL Red Cell Distribution Width 14.1 11.8-14.3 % Platelet Count 285 140-450 10^3/uL Mean Platelet Volume 7.8 6.9-10.8 fL Neutrophils (%) (Auto) 71.1 37.0-80.0 % Lymphocytes (%) (Auto) 17.2 10.0-50.0 % Monocytes (%) (Auto) 6.6 0.0-12.0 % Eosinophils (%) (Auto) 4.8 0.0-7.0 % Basophils (%) (Auto) 0.3 0.0-2.0 % Neutrophils # (Auto) 5.7 1.6-8.6 10 ^3/uL Lymphocytes # (Auto) 1.4 0.4-5.4 10 ^3/uL Monocytes # (Auto) 0.5 0-1.3 10 ^3/uL Eosinophils # (Auto) 0.4 0-0.8 10 ^3/uL Basophils # (Auto) 0 0-0.2 10 ^3/uL Nucleated Red Blood Cells 0.0 % Sodium Level 138 136-145 mmol/L Potassium Level 3.8 3.5-5.1 mmol/L Chloride Level 104 98-107 mmol/L Carbon Dioxide Level 26 20-31 mmol/L Anion Gap 8 5-15 Blood Urea Nitrogen 6 L 9-23 mg/dL Creatinine 0.54 L 0.550-1.02 mg/dL Glomerular Filtration Rate Calc 128 >90 mL/min BUN/Creatinine Ratio 11.1 10.0-20.0 Serum Glucose 118 H 74-106 mg/dL Calcium Level 9.4 8.7-10.4 mg/dL Total Bilirubin 0.4 0.2-1.0 mg/dL Aspartate Amino Transferase (AST) 12 L 13-40 U/L Alanine Aminotransferase (ALT) 25 7-40 U/L Alkaline Phosphatase 65 46-116 U/L Total Protein 8.4 H 5.7-8.2 g/dL Albumin 4.8 3.2-4.8 g/dL Lipase 40 12-53 U/L Urine Color Yellow Yellow Urine Clarity Clear Clear Urine pH 5.5 5.0-9.0 Urine Specific [place] 1.025 1.001-1.035 Urine Protein Trace H Negative Urine Ketones Trace Negative Urine Blood Negative Negative /uL Urine Nitrite Negative Negative Urine Bilirubin Negative Negative Urine Urobilinogen Normal Negative mg/dL Urine Leukocyte Esterase Negative Negative /uL Urine RBC 2 0 - 4 /hpf Urine Microscopic WBC 1 0-5 /HPF Urine Squamous Epithelial Cells Few <5 /hpf Urine Bacteria None seen None Seen /hpf Urine Mucus Few None Seen Urine Glucose Normal Normal mg/dL Urine Test Negative Negative Current Medications Medications (Trade) Dose Ordered Sig/Desmond Route Start Time Stop Time Status Last Admin Ondansetron HCl (Zofran) 4 mg ONCE ONCE IV 12/12/24 08:30 12/12/24 08:31 DC 12/12/24 09:32 Sodium Chloride 1,000 ml @ 1,000 mls/hr Q1H ONCE IV 12/12/24 09:15 12/12/24 10:14 DC 12/12/24 09:33 Methylprednisolone Sodium Succinate (Solu Medrol) 125 mg ONCE ONCE IV 12/12/24 09:15 12/12/24 09:16 DC 12/12/24 09:32 Hydromorphone HCl (Dilaudid Injection) 0.5 mg ONCE ONCE IV 12/12/24 09:15 12/12/24 09:16 DC 12/12/24 09:33 [id number] UNIT: [id number] : 1995 LOC: ER ROOM / BED: / AGE / SEX: 29 / F ADM STATUS: REG ER SERVICE 0910 ORDERING PHYSICIAN: BANDAR LEWIS MD PROCEDURE(s): ABPLIV - CT AB PEL WITH IV CON ONLY REASON: HX OF ULCERATIVE COLITIS, RO ABCESS ORDER NUMBER(s): [id number], ACCESSION NUMBER(s): [id number] CT CT AB PEL WITH IV CON ONLY INDICATION: HX OF ULCERATIVE COLITIS, RO ABCESS EXAM DATE: 12/12/2024 09:44 AM COMPARISON: None RADIATION DOSE: CTDIvol: 5 mGy, DLP: 289 mGy*cm PROCEDURE: Helical CT images were obtained of the abdomen and pelvis with IV contrast Sagittal and coronal reconstructions are provided. ORAL CONTRAST: None. ADDITIONAL IMAGES / REFORMATS: None All CT scans at this medical facility are performed using dose modulation techniques as appropriate to a performed exam including the following: Automated exposure control was utilized; adjustment of the MA and/or KV according to patient size; and use of iterative reconstruction technique. FINDINGS: LUNG BASE: Normal. LIVER: Normal. GALLBLADDER AND BILIARY TREE: No calcified gallstones. Normal caliber wall. No intra- or extrahepatic biliary ductal dilation. PANCREAS: Normal. SPLEEN: Normal. BOWEL: Normal. ADRENALS: Normal. KIDNEYS AND URETER: Normal. BLADDER: Normal. REPRODUCTIVE ORGANS: 2.6 cm right ovary cyst. Trace pelvic fluid. LYMPH NODES:No lymphadenopathy. PERITONEUM: No ascites or free air. No other fluid collection. VESSELS: Scattered atherosclerotic calcifications are noted. RETROPERITONEUM: Normal. ABDOMINAL WALL: Normal. BONES: Scattered osseous degenerative changes are noted. IMPRESSION: No acute intraabdominal abnormality. ATED BY: MACIEL VALDEZ MD DICTATED DATE/TIME: 12/12/24 1015 SIGNED BY: MACIEL VALDEZ MD SIGNED DATE/TIME: 12/12/24 1015 CC: 29-YEAR-OLD FEMALE PRESENTS HERE WITH BLOODY DIARRHEA AND ABDOMINAL PAIN. SHE HAS A KNOWN HISTORY OF ULCERATIVE COLITIS AND CURRENTLY TAKES MESALAMINE. HER DOSE OF MESALAMINE WAS CHANGED TO T.I.D. DOSING VERSUS B.I.D. DOSING PROXIMALLY 1 AND HALF MONTH AGO. SHE STATES SHE WAS DOING WELL 1ST BUT NOW IT IS CAUSING HER PROBLEMS. AT THIS TIME CT ABDOMEN PELVIS HAS BEEN DONE WITH NO EVIDENCE OF ABSCESS NO EVIDENCE OF SMALL-BOWEL OBSTRUCTION. I HAVE GIVEN HER SOLU-MEDROL AND PAIN MEDICATIONS IN THE ER. ON RE-EVALUATION SHE IS DOING MUCH BETTER. I DID OFFERED HER ADMISSION BUT SHE REFUSED. I ALSO OFFERED TO CALL DR. LOCK HER GI PHYSICIAN FOR AN EARLIER APPOINTMENT BUT SHE STATED THAT SHE PREFERS TO LEAVE IT FOR NOW AND TRY CHANGING THE DOSE BACK TO PREVIOUS B.I.D. DOSING AND SEE IF THAT HELPS. SHE WAS PREVIOUSLY TAKING MESALAMINE 1200 B.I.D. AND THAT IS WHAT SHE WILL RESTART. I HAVE GIVEN HER SOLU-MEDROL IN THE ER. I WILL BE PRESCRIBING HER PREDNISONE 40 MG P.O. X5 DAYS AND ADVISED HER TO RESTART HER PREDNISONE 5 MG B.I.D. AFTER THAT. ALSO GIVEN A PRESCRIPTION FOR NORCO AND ZOFRAN. ADVISED HER TO FOLLOW UP WITH THE PCP IN 2-3 DAYS AND RETURN TO THE ER IF SYMPTOMS WORSEN OR PERSIST. Time of 1ST Reevaluation: 10:12 Reevaluation 1ST: Unchanged Patient Education/Counseling: Diagnosis, Treatment Family Education/Counseling: No Family Present Departure 1 Departure Time of Disposition: 10:57 Impression: Primary Impression: Ulcerative colitis, acute Qualified Codes: K51.911 - Ulcerative colitis, unspecified with rectal bleeding Disposition: HOME / SELF CARE / HOMELESS Condition: Stable Additional Instructions: FOLLOW UP WITH THE PRIMARY CARE PHYSICIAN AND CONTINUOUS PICKLING LINE PICKLER HELPER IN 2-3 DAYS. RETURN TO THE ER IF SYMPTOMS WORSEN OR PERSIST. RETURN TO THE ER IF SYMPTOMS WORSEN OR PERSIST. e-Prescriptions Ondansetron Odt 4MG Tab (ZOFRAN PO) 4 Mg Tb 4 MG PO Q6HP PRN, #10 TAB ODT TAB-DISSOLVE IN MOUTH, THEN SWALLOW Prov: BANDAR LEWIS MD 12/12/24 Hydrocodone-Acetaminophen (Hydrocodone Bitartrate/AC 5-325 mg) 1 Tab Tab 1 TAB PO Q6HP PRN for 7 Days, #14 TAB Prov: BANDAR LEWIS MD 12/12/24 Prednisone (Prednisone) 10 Mg Tab 40 MG PO DAILY for 5 Days, #5 MG Prov: BANDAR LEWIS MD 12/12/24 Discharged With: Self Critical Care Note Critical Care Time?: No Stability Stability form required: No Heart Score Heart Score: Heart Score Response (Comments) Value History N/A 0 EKG N/A 0 Age N/A 0 Risk Factors N/A 0 Troponin N/A 0 Total 0 BANDAR LEWSI MD Dec 12, 2024 09:01
[2024-12-12 09:02] LABS: Bilirubin, Total 0.4 mg/dL (0.2-1.0)
[2024-12-12 09:03] LABS: Albumin 4.8 g/dL (3.2-4.8); Aspartate Aminotransferase 12 U/L (13-40); Blood Urea Nitrogen 6 mg/dL (9-23); Glucose 118 mg/dL (74-106); Total Protein 8.4 g/dL (5.7-8.2)
[2024-12-12 09:19] VITALS: PULSE 98; RESP 14; O2SAT 99
[2024-12-12] MEDS: methylPREDNISolone SOD SUCC 125 MG/2 ML VL IV ONE (09:32)
[2024-12-12] MEDS: ONDANSETRON HCL 4 MG/2 ML VIAL IV ONE (09:32)
[2024-12-12] MEDS: SODIUM CHLORIDE 0.9% 1,000 ML IV ONE (09:33)
[2024-12-12] MEDS: HYDROmorphone HCL 2 MG/ML VL/or syr IV ONE (09:33)
[2024-12-12] MEDS: IOHEXOL 300 MG/ML 100ML BOTTLE IJ ONE (09:57)
--- NOTE | 2024-12-12 10:17 | DVH ---
CT CT AB PEL WITH IV CON ONLY INDICATION: HX OF ULCERATIVE COLITIS, RO ABCESS EXAM DATE: 12/12/2024 09:44 AM COMPARISON: None RADIATION DOSE: CTDIvol: 5 mGy, DLP: 289 mGy*cm PROCEDURE: Helical CT images were obtained of the abdomen and pelvis with IV contrast Sagittal and co anca reconstructions are provided. ORAL CONTRAST: None. ADDITIONAL IMAGES / REFORMATS: None All CT s cans at this medical facility are performed using dose modulation techniques as appropriate to a perf ormed exam including the following: Automated exposure control was utilized; adjustment of the MA and /or KV according to patient size; and use of iterative reconstruction technique. FINDINGS: LUNG BASE: Normal. LIVER: Normal. GALLBLADDER AND BILIARY TREE: No calcified gallstones. Normal caliber wall. No intra- or extrahepatic biliary ductal dilation. PANCREAS: Normal. SPLEEN: Normal. BOWEL: Normal. ADRENALS: Normal. KIDNEYS AND URETER: Normal. BLADDER: Normal. REPRODUCTIVE ORGANS: 2.6 cm right ovary cyst. Trace pelvic fluid. LYMPH NODES:No lymphadenopathy. PERITONEUM: No ascites or free air. No other fluid collection. VESSELS: Scattered atherosclerotic calcifications are noted. RETROPERITONEUM: Normal. ABDOMINAL WALL: Normal. BONES: Scattered osseous degenerative changes are noted. IMPRESSION: No acute intraabdominal abnormality.
[2024-12-12] MEDS ORDERED: HYDR-4902 PO (11:02)
[2024-12-12] MEDS ORDERED: PRED10TA PO (11:02)
[2024-12-12] MEDS ORDERED: ZOFR4T PO (11:02)
[2024-12-12] MEDS: diphenhdrAMINE HCL 25 MG CAP PO ONE (11:04)
[2024-12-12 11:13] VITALS: BP 115/81; PULSE 87; RESP 16; TEMP 97.7; O2SAT 98
== END 2024-12-12 11:31 | disposition home or self-care (01) ==
LOC: ER 07:33
DX: K51.90 Ulcerative colitis, unspecified, without complications (principal); F17.210 Nicotine dependence, cigarettes, uncomplicated; Z79.899 Other long term (current) drug therapy; Z98.890 Other specified postprocedural states
CPT/HCPCS: 36415; 74177; 80053; 81001; 81025; 83690; 85025; 96361; 96374; 96375; 99285; J1171; J2405; J2919; J7030; Q9967